=== PATIENT | male | born 1950 | race African-American/Black ===

== ENCOUNTER 2016-11-20 08:53 | Emergency (ER) | payer MEDICARE ==
--- NOTE | ~2016-11-20 | CT71 ---
[facility] A Service of [facility] RADIOLOGY TEXT RESULTS PATIENT: DANNY TREJO LOCATION: [facility] : 46 UNIT #: [id number] AGE: [address]: Enrique Peters MD SEX: M ORDER DR: [id number] [facility]. [place], [place] [address] [id number] MR#: [id number] Acc #: [id number] NAME: DANNY TREJO : 1950 SEX: M STUDY DATE/TIME: 11/20/2016 10:18 UNIT: [facility] ROOM: STUDY DESCRIPTION: CT Head Wo Contrast Attending Physician: Enrique Peters M.D. Ordering Physician: Enrique Peters M.D. Primary Care Physician: Generic Doctor Not In System MEDICAL IMAGING REPORT This report is preliminary unless electronic signature is present EXAM CT head. INDICATIONS Generalized weakness and decreased level of consciousness for one day. TECHNIQUE CT of the head without contrast. This CT exam was performed with one or more of the following radiation dose reduction techniques: automatic exposure control, adjustment of mA and/or kV according to patient size, and iterative reconstruction. COMPARISON None available. 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 Chronic small vessel changes. No hemorrhage or mass lesion. Ventricles are normal. IMPRESSION: Hypodensities in the right inferior pariental lobe and right occipital lobe probably represent encephalomalacia. However, if there are ongoing neurological symptoms consider a MRI to confirm. Chronic small vessel changes. [facility] A Service of [facility] RADIOLOGY TEXT RESULTS PATIENT: DANNY TREJO LOCATION: [facility] : 46 UNIT #: [id number] AGE: [address]: Enrique Peters MD SEX: M ORDER DR: Dictated by... Paul Quijano M.D. THIS IS AN ELECTRONICALLY VERIFIED REPORT Pual Quijano M.D. at 12/06/2016 1:31 PM Kamila TD: 11/20/2016 20:54 JOB #: [id number] MEDICAL IMAGING REPORT Page 1 of 1 COPY
--- NOTE | ~2016-11-20 | CR72 ---
[facility] A Service of [facility] RADIOLOGY TEXT RESULTS PATIENT: DANNY TREJO LOCATION: [facility] : 46 UNIT #: [id number] AGE: [address]: Enrique Peters MD SEX: M ORDER DR: [id number] [facility] [address] [facility] [address] [place], [place] [address] [id number] E MR#: [id number] Acc #: [id number] NAME: DANNY TREJO : 1950 SEX: M STUDY DATE/TIME: 11/20/2016 09:17 UNIT: [facility] ROOM: STUDY DESCRIPTION: CR Chest Single View Portable Attending Physician: Enrique Peters M.D. Ordering Physician: Enrique Peters M.D. Primary Care Physician: Generic Doctor Not In System MEDICAL IMAGING REPORT This report is preliminary unless electronic signature is present EXAM Chest portable, 11/20/2016, 0917 hours. CLINICAL HISTORY 65-year-old man with decreased level of consciousness, altered mental status and shortness of air today. COMPARISON None. FINDINGS Single upright portable film demonstrates slightly low lung volumes. The heart size is normal and the aorta is mildly tortuous. The lungs are clear and there are no effusions. There is a loop recorder over the left mid chest. IMPRESSION Slightly low lung volumes with no acute cardiopulmonary findings. A loop recorder is present over the left anterior mid chest. Dictated by... Salome Hwang M.D. THIS IS AN ELECTRONICALLY VERIFIED REPORT Salome Hwang M.D. at 11/21/2016 12:31 PM Dayanara TD: 11/20/2016 17:34 JOB #: [id number] MEDICAL IMAGING REPORT Page 1 of 1 COPY
--- NOTE | ~2016-11-20 | EKG ---
PATIENT: DANNY TREJO UNIT #: [id number] Ventricular Rate: 88 BPM Atrial Rate: 88 BPM P-R Interval: 168 ms QRS Duration: 84 ms Q-T Interval: 380 ms QTC Calculation(Bezet): 459 ms P [place]: 84 degrees Calculated R [place]: 47 degrees Calculated T [place]: 67 degrees Diagnosis Line: Normal sinus rhythm Diagnosis Line: Normal ECG Diagnosis Line: No previous ECGs available Diagnosis Line: Confirmed by RENE CARMEN MD ([id number]) on 11/20/2016 Diagnosis Line: 5:25:55 PM INTERPRETING MD: KERMIT QUARLES
[2016-11-20 09:18] LABS: ARTERIAL BLD GAS O2 SATURATION 96.3 % (90.0-100.0); ARTERIAL BLOOD GAS ALLEN TEST NORMAL; ARTERIAL BLOOD GAS ART SITE RIGHT RADIAL; ARTERIAL BLOOD GAS CARBOXY HB 0.6 %sat (0.0-9.0); ARTERIAL BLOOD GAS DELIVERY ROOM AIR; ARTERIAL BLOOD GAS HCO3 27.9 mmol/L; ARTERIAL BLOOD GAS MET HB 0.6 %sat (0.0-2.0); ARTERIAL BLOOD GAS PCO2 42.1 mmHg (35.0-45.0); ARTERIAL DRAW? YES
[2016-11-20 09:59] LABS: BASOPHIL# 0.1 X10e3 (0-0.3); BASOPHIL% 0.8 % (0-2.5); DIFF IND NO; EOSINOPHIL# 0.1 X10e3 (0-0.7); EOSINOPHIL% 0.7 % (0.0-7.0); HEMATOCRIT 35.4 % (38.0-50.0); HEMOGLOBIN 11.7 gm/dL (13.0-16.0); LYMPHOCYTE# 1.5 X10e3 (1.0-3.5); LYMPHOCYTE% 17.2 % (17.0-45.0); MEAN CORPUSCULAR HEMOGLOBIN 28.1 PG (28-34); MEAN CORPUSCULAR HGB CONC 33.1 g/dL (30-36); MEAN PLATELET VOLUME 6.8 FL (6.5-11.5); MONOCYTE# 0.7 X10e3 (0-1.0); MONOCYTE% 8.3 % (3.0-12.0); NEUTROPHIL# 6.3 X10e3 (1.5-7.1); PLATELET COUNT 320 X10e3 (140-420); RED BLOOD COUNT 4.16 X10e (3.90-5.60); RED CELL DISTRIBUTION WIDTH 15.1 % (11.0-15.5); WHITE BLOOD COUNT 8.6 X10e3 (4.0-10.5)
[2016-11-20 10:12] LABS: INR 1.2; PARTIAL THROMBOPLASTIN TIME 30.6 SECONDS (23.5-31.3); PROTHROMBIN TIME (PATIENT) 12.5 SECONDS (10.0-11.7)
[2016-11-20 10:32] LABS: BILIRUBIN, DIRECT 0.1 mg/dL (0.0-0.2); BILIRUBIN,TOTAL 0.1 mg/dL (0.2-2.0); BUN/CREATININE RATIO 15.45; CALCIUM SERUM 8.8 mg/dL (8.4-10.2); CREATININE SERUM 1.1 mg/dL (0.6-1.4); GLOM FILT RATE Estimated 69.1 mL/min (>60); POTASSIUM 4.3 mmol/L (3.5-5.1)
[2016-11-20 10:54] LABS: URINE SOURCE CLEAN CATCH
[2016-11-20 11:03] LABS: URINE APPEARANCE CLEAR; URINE BILIRUBIN NEG (NEG); URINE BLOOD NEG (NEG); URINE COLOR YELLOW; URINE GLUCOSE >1000 MG/DL (NEG); URINE KETONE NEG (NEG); URINE LEUKOCYTE ESTERASE NEG (NEG); URINE NITRATE NEG (NEG); URINE PH 5.5 (5-8); URINE PROTEIN TRACE (NEG); URINE UROBILINOGEN 0.2 MG/DL (NEG)
[2016-11-20 11:05] LABS: CULTURE INDICATED? NO
== END 2016-11-20 12:10 | disposition home or self-care (01) ==
LOC: CED 08:53
PROVIDERS: Emergency Medicine
DX: R41.82 Altered mental status, unspecified (principal); E11.9 Type 2 diabetes mellitus without complications
CPT/HCPCS: 36415; 36600; 70450; 71010; 80048; 80076; 81003; 82140; 82803; 83605; 85025; 85610; 85730; 87040; 93005; 99285